=== PATIENT | male | born 1965 | race African-American/Black ===

== ENCOUNTER → 2017-07-11 | Outpatient (CLI) | payer BC ==
[~2017-07-11] MED LIST: SYNTHROID0.125 MG/T PO
== END ==
LOC: COL.RAD 09:58
DX: K63.89 Other specified diseases of intestine (principal)
CPT/HCPCS: J7050; Q9967

== ENCOUNTER 2017-07-17 13:55 | Inpatient (IN) | payer BC ==
[~2017-07-17] VITALS: Ht 170.2 cm; Wt 90.4 kg
[2017-07-26] VITALS (12 sets, daily range): BP systolic 90–119; BP diastolic 60–71; PULSE 82–106; TEMP 97.3–98.5
[2017-07-26 14:14] LABS: HEMATOCRIT 28.7 % (42.0-52.0); HEMOGLOBIN 8.8 g/dl (13.5-18.0)
[2017-07-27 00:28] VITALS: BP 102/61; PULSE 92; TEMP 98.2
[2017-07-27 05:12] VITALS: BP 97/56; PULSE 88; TEMP 98.1
[2017-07-27 09:17] LABS: MEAN CELL VOLUME 88 fl (80.0-100.0); MEAN CORPUSCULAR HGB CONC 31 g/dl (33.0-37.0); MEAN PLATELET VOLUME 9.7 fl (7.4-10.4); PLATELET COUNT 368 K/mm3 (130-400); RED BLOOD COUNT 2.88 M/mm3 (4.20-5.60)
[2017-07-27 09:18] LABS: HEMATOCRIT 25.4 % (42.0-52.0); HEMOGLOBIN 7.9 g/dl (13.5-18.0); MEAN CORPUSCULAR HEMOGLOBIN 27 pg (27.0-31.0)
[2017-07-27 09:21] VITALS: BP 117/66; PULSE 94; TEMP 98.8
[2017-07-27 09:26] LABS: CALCIUM 8.1 mg/dL (8.4-10.2); CREATININE, serum 1.1 mg/dL (0.66-1.25); POTASSIUM 3.9 mmol/L (3.4-5.0)
[2017-07-27 14:01] VITALS: BP 116/59; PULSE 92; TEMP 99.4
[2017-07-27 18:03] VITALS: BP 107/61; PULSE 95; TEMP 98.3
[2017-07-27 21:51] VITALS: BP 102/60; PULSE 98; TEMP 99.6
[2017-07-28 01:59] VITALS: BP 118/53; PULSE 103; TEMP 100.3
[2017-07-28 03:21] VITALS: TEMP 99.4
[2017-07-28 05:04] VITALS: BP 128/74; PULSE 102; TEMP 99.3
[2017-07-28 06:30] LABS: HEMATOCRIT 26.1 % (42.0-52.0)
[2017-07-28 06:37] LABS: CALCIUM 7.9 mg/dL (8.4-10.2); CREATININE, serum 1.14 mg/dL (0.66-1.25); POTASSIUM 3.7 mmol/L (3.4-5.0)
[2017-07-28 10:00] VITALS: BP 130/67; PULSE 95; TEMP 97.8
[2017-07-28 13:04] VITALS: BP 126/65; PULSE 99; TEMP 98.2
[2017-07-28 22:05] VITALS: BP 106/66; PULSE 91; TEMP 98.5
[2017-07-29 05:29] VITALS: BP 108/59; PULSE 90; TEMP 98.2
[2017-07-29 09:58] VITALS: BP 116/68; PULSE 86; TEMP 98
[2017-07-29 14:46] VITALS: BP 112/62; PULSE 94; TEMP 97.2
[2017-07-29 17:58] VITALS: BP 111/65; PULSE 90; TEMP 98.6
[2017-07-29 21:16] VITALS: BP 101/55; PULSE 92; TEMP 98.4
[2017-07-30 05:50] VITALS: BP 132/65; PULSE 85; TEMP 98.6
[2017-07-30 10:37] VITALS: BP 109/68; PULSE 88; TEMP 98.2
== END 2017-07-30 14:30 | disposition home or self-care (01) | DRG 331 ==
LOC: INPTSU 07-26 06:02 → SURG 07-26 08:00
PROVIDERS: Surgery
PROC: 0DTF0ZZ Resection of Right Large Intestine, Open Approach (ICD-10-PCS; principal; 2017-07-26 08:00)
DX: C18.2 Malignant neoplasm of ascending colon (principal); E03.9 Hypothyroidism, unspecified; D64.9 Anemia, unspecified; Z88.0 Allergy status to penicillin; Z53.31 Laparoscopic surgical procedure converted to open procedure
CPT/HCPCS: A4314; A9284; J0744; J1100; J1650; J2250; J2370; J2405; J2704; J2710; J2795; J3010; J7120

== ENCOUNTER → 2018-02-09 | Outpatient (CLI) | payer BC | LOC: COL.RAD 08:53 | DX: Z85.038 Personal history of other malignant neoplasm of large intestine (principal); N40.0 Benign prostatic hyperplasia without lower urinary tract symptoms; Z90.49 Acquired absence of other specified parts of digestive tract; Z98.890 Other specified postprocedural states | CPT/HCPCS: Q9967 ==

== ENCOUNTER 2018-07-27 07:02 | Day surgery (SDC) | payer BC ==
[~2018-07-27] VITALS: Ht 170.2 cm; Wt 93.9 kg
[2018-07-27 07:21] VITALS: BP 129/92; PULSE 86; TEMP 97.6
[2018-07-27 08:35] VITALS: BP 106/81; PULSE 69; TEMP 97.9
[2018-07-27 09:08] VITALS: BP 105/72; PULSE 60
[2018-07-27 09:15] VITALS: BP 106/78; PULSE 57
== END 2018-07-27 09:20 | disposition home or self-care (01) ==
LOC: SDCO 07:02
DX: Z12.11 Encounter for screening for malignant neoplasm of colon (principal); K63.89 Other specified diseases of intestine; E03.9 Hypothyroidism, unspecified; Z88.0 Allergy status to penicillin; Z90.49 Acquired absence of other specified parts of digestive tract; Z85.038 Personal history of other malignant neoplasm of large intestine
CPT/HCPCS: J2250; J2405; J3010; J7030

== ENCOUNTER → 2018-08-17 | Outpatient (CLI) | payer BC | LOC: COL.RAD 08:16 | DX: C18.2 Malignant neoplasm of ascending colon (principal); N40.0 Benign prostatic hyperplasia without lower urinary tract symptoms | CPT/HCPCS: Q9967 ==